=== PATIENT | male | born 1955 | race Caucasian/White ===

== ENCOUNTER 2017-01-13 10:45 | Emergency (ER) | payer OTHER ==
[~2017-01-13] VITALS: Wt 78.0 kg
[~2017-01-13 10:45] MED LIST: LEVO88TA36 PO; OMEP20CA16 PO
[2017-01-13] MEDS ORDERED: ALPR0.25 PO (12:26)
[2017-01-13] MEDS ORDERED: PRED20TA PO (12:26)
[2017-01-13] MEDS ORDERED: DIPHENHYDRAMINE 50 MG INJ IM ONE (12:30)
[2017-01-13] MEDS ORDERED: DEXAMETHASONE 10 MG/ML 1 ML INJ IM ONE (12:30)
[2017-01-13 12:33] VITALS: TEMP 98.3
[2017-01-13] MEDS ORDERED: AMO500 PO (12:35)
--- NOTE | 2017-01-13 19:12 | ERD ---
ER Documentation Chief Complaint Date/Time DATE: 01/13/17 TIME: 19:06 Chief Complaint BILATERAL EAR PAIN HPI 61-year-old male with past medical history of thyroid cancer, GERD, and high cholesterol presenting with complaints of bilateral tinnitus ongoing intermittently for the past 2 weeks. The patient states his symptoms were intermittent at first but are now constant. The patient has had no dizziness, chest pain, shortness of breath, ear discharge, ear pain, or other symptoms. The patient presents having one episode of similar symptoms in the past. There are no other symptoms to report at this time. ROS All systems reviewed and are negative except as per history of present illness. Medications Home Meds Active Scripts Amoxicillin* (Amoxicillin*) 500 Mg Cap, 500 MG PO BID for 10 Days, #20 CAP Prov:SARAH BEGUM PA-C 01/13/17 Alprazolam* (Xanax*) 0.25 Mg Tablet, 0.25 MG PO Q8H Y for ANXIETY, #10 TAB Prov:SARAH BEGUM PA-C 01/13/17 Prednisone* (Prednisone*) 20 Mg Tab, 40 MG PO DAILY for 5 Days, #10 TAB Prov:SARAH BEGUM PA-C 01/13/17 Reported Medications Levothyroxine Sodium (Levothroid) 88 Mcg Tablet, 88 MCG PO DAILY 06/27/13 Omeprazole* (Omeprazole*) 20 Mg Capsule.dr, 20 MG PO DAILY 06/27/13 Allergies Allergies: Coded Allergies: Tetanus Vaccines and Toxoid (Verified Allergy, Unknown, 01/13/17) PMhx/Soc Medical and Surgical Hx: pt denies Surgical Hx History of Surgery: No Anesthesia Reaction: No Hx Neurological Disorder: No Hx Respiratory Disorders: No Hx Cardiac Disorders: No Hx Psychiatric Problems: No Hx Miscellaneous Medical Probl: Yes (sinus infection) Hx Alcohol Use: No Hx Substance Use: No Hx Tobacco Use: No Smoking Status: Never smoker FmHx Noncontributory for chief complaint Physical Exam Vitals Vital Signs Date Time Temp Pulse Resp B/P Pulse Ox O2 Delivery O2 Flow Rate FiO2 01/13/17 12:33 98.3 01/13/17 10:55 98.0 68 18 136/77 98 Physical Exam INITIAL VITAL SIGNS: Reviewed by me. GENERAL: Alert and interactive. No acute distress. HEAD: Head is normocephalic and atraumatic. EYES: EOMI. No scleral icterus. No conjunctival injection. ENT: There is mild erythema to the right tympanic membrane but no bulging. There is no mastoid tenderness to palpation. NECK: Supple. Full range of motion. RESPIRATORY: Normal respiratory effort. Clear breath sounds bilaterally. No wheezing, rales, or rhonchi. CV: Regular rate and rhythm. Normal S1 S2. No S3 or S4. No murmurs. ABDOMEN: Soft, non-distended, non-tender. No guarding. No rebound. No masses. EXTREMITIES: No deformity. SKIN: Warm and dry. NEUROLOGIC: Alert and oriented x 4. Speech is normal. Moves all extremities equally. No motor or sensory deficits noted. Negative Romberg sign. Cranial nerves are intact. Results 24 hrs Current Medications Medications (Trade) Dose Ordered Sig/Ramon Route PRN Reason Start Time Stop Time Status Last Admin Dose Admin Diphenhydramine HCl (Benadryl) 25 mg ONCE ONCE IM 01/13/17 12:30 01/13/17 12:31 DC 01/13/17 12:19 Dexamethasone (Decadron) 10 mg ONCE ONCE IM 01/13/17 12:30 01/13/17 12:31 DC 01/13/17 12:19 Procedures/MDM 61-year-old male presents secondary to complaints of bilateral tinnitus. On physical examination the patient's vitals are within normal limits. Neurological exam is negative. I treated the patient in the department with IM Decadron and IM Benadryl and he was feeling improved on reevaluation. I have low suspicion for CVA, TIA, vertigo, drug-induced tinnitus, or other emergent conditions. The patient will be given prescriptions for amoxicillin, prednisone , and Xanax. The patient is stable for outpatient management. The patient agrees with the diagnosis and discharge plan. The patient was advised to return to the department immediately with any new or worsening symptoms. The patient demonstrates understanding of this information. All questions and concerns were addressed and the patient was hemodynamically stable prior to discharge. Departure Diagnosis: Primary Impression: Tinnitus Condition: Fair Patient Instructions: Tinnitus (Ringing in the Ears) Referrals: COMMUNITY CLINICS YOU HAVE RECEIVED A MEDICAL SCREENING EXAM AND THE RESULTS INDICATE THAT YOU DO NOT HAVE A CONDITION THAT REQUIRES URGENT TREATMENT IN THE EMERGENCY DEPARTMENT. FURTHER EVALUATION AND TREATMENT OF YOUR CONDITION CAN WAIT UNTIL YOU ARE SEEN IN YOUR DOCTORS OFFICE WITHIN THE NEXT 1-2 DAYS. IT IS YOUR RESPONSIBILITY TO MAKE AN APPOINTMENT FOR FOLOW-UP CARE. IF YOU HAVE A PRIMARY DOCTOR --you should call your primary doctor and schedule an appointment IF YOU DO NOT HAVE A PRIMARY DOCTOR YOU CAN CALL OUR PHYSICIAN REFERRAL HOTLINE AT IF YOU CAN NOT AFFORD TO SEE A PHYSICIAN YOU CAN CHOSE FROM THE FOLLOWING [facility] [address] [facility] [address] [facility] [address] [facility] [address] [facility] [address] [facility] [address] [facility] [address] [facility] [address] Additional Instructions: Follow-up with your primary care physician within 1 week. Return to the emergency department immediately should you have any new or worsening symptoms, uncontrolled fevers, or other unexplained symptoms. Take all medications as directed. SARAH BEGMU PA-C Jan 13, 2017 19:12
== END 2017-01-13 12:34 | disposition home or self-care (01) ==
LOC: FTE 10:45
DX: H93.13 Tinnitus, bilateral (principal); Z85.850 Personal history of malignant neoplasm of thyroid
CPT/HCPCS: 96372; J1100; J1200; Z7502

== ENCOUNTER 2017-07-31 01:56 | Emergency (ER) | payer OTHER ==
[~2017-07-31] VITALS: Ht 172.7 cm; Wt 70.5 kg
[~2017-07-31 01:56] MED LIST changes: +ALPR0.25 PO; +AMO500 PO; +PRED20TA PO
[2017-07-31 02:00] VITALS: Ht 172.7 cm; Wt 70.5 kg
--- NOTE | 2017-07-31 03:34 | ERD ---
ER Documentation Chief Complaint Date/Time DATE: 07/31/17 TIME: 03:34 Chief Complaint cough, nasal congestion, insomnia HPI 51-year-old male presents to emergency department for complaints of cough, runny nose, nasal congestion started 2 weeks ago. Patient has been having dry cough, does not cough up any phlegm or blood. Patient does not have any shortness of breath or wheezing. Patient cannot sleep at night because he is very congested in his nose. He has been taking Flonase stop with some of the symptoms with mild relief. Patient denies any chest pain or palpitations. Patient denies any dizziness. ROS All systems reviewed and are negative except as per history of present illness. Medications Home Meds Active Scripts Amoxicillin* (Amoxicillin*) 500 Mg Cap, 500 MG PO BID for 10 Days, #20 CAP Prov:SARAH BEGUM PA-C 01/13/17 Alprazolam* (Xanax*) 0.25 Mg Tablet, 0.25 MG PO Q8H Y for ANXIETY, #10 TAB Prov:SARAH BEGUM PA-C 01/13/17 Prednisone* (Prednisone*) 20 Mg Tab, 40 MG PO DAILY for 5 Days, #10 TAB Prov:SARAH BEGUM PA-C 01/13/17 Reported Medications Levothyroxine Sodium (Levothroid) 88 Mcg Tablet, 88 MCG PO DAILY 06/27/13 Omeprazole* (Omeprazole*) 20 Mg Capsule.dr, 20 MG PO DAILY 06/27/13 Allergies Allergies: Coded Allergies: Tetanus Vaccines and Toxoid (Verified Allergy, Unknown, 07/31/17) PMhx/Soc History of Surgery: No Anesthesia Reaction: No Hx Neurological Disorder: No Hx Respiratory Disorders: No Hx Cardiac Disorders: No Hx Psychiatric Problems: Yes (psych) Hx Miscellaneous Medical Probl: Yes (sinus infection) Hx Alcohol Use: No Hx Substance Use: No Hx Tobacco Use: No FmHx Family History: No coronary disease, No diabetes, No other Physical Exam Vitals Vital Signs Date Time Temp Pulse Resp B/P Pulse Ox O2 Delivery O2 Flow Rate FiO2 07/31/17 02:00 97.6 60 20 164/85 98 Physical Exam GENERAL: The patient is well developed and appropriate for usual state of health, in no apparent distress. CHEST: Clear to auscultation bilaterally. There are no rales, wheezes or rhonchi. HEART: Regular rate and rhythm. No murmurs, clicks, rubs or gallops. No S3 or S4. ABDOMEN: Soft, nontender and nondistended. Good bowel sounds. No rebound or guarding. No gross peritonitis. No gross organomegaly or masses. No Tidwell sign or McBurney point tenderness. BACK: No midline or flank tenderness. EXTREMITIES: Equal pulses bilaterally. There is no peripheral clubbing, cyanosis or edema. No focal swelling or erythema. Full range of motion. Grossly neurovascularly intact. NEURO: Alert and oriented. Cranial nerves 2-12 intact. Motor strength in all 4 extremities with 5/5 strength. Sensation grossly intact. Normal speech and gait. SKIN: There is no apparent rash or petechia. The skin is warm and dry. HEMATOLOGIC AND LYMPHATIC: There is no evidence of excessive bruising or lymphedema. No gross cervical, axillary, or inguinal lymphadenopathy. Results 24 hrs PROCEDURE: Chest. CLINICAL INDICATION: Cough. TECHNIQUE: Single frontal view of the chest was obtained. COMPARISON: 06/27/2013. FINDINGS: The cardiac silhouette is within normal limits. The aortic arch is unremarkable. There is no focal consolidation, vascular congestion or pleural effusion. There is no pneumothorax. IMPRESSION: No evidence for active cardiopulmonary disease. .Ashwin Ayala MD, MD Date Time Electronically viewed and signed by .Ashwin Ayala MD, MD on 07/31/2017 03:34 .T/ CC: PERRY LOPEZ [employer] Procedures/MDM Medical Decision Making: Patient symptoms are most likely consistent with acute bronchitis, which possibly atypical infection There is low suspicion for Pneumonia at this time since patients lungs sounds are clear, patient O2 saturation is normal and patient doesnt show any respiratory distress. Patients chest xray doesnt show infiltrates or any other cardiopulmonary emergencies at this time. There is low suspicion for other cardiopulmonary emergencies at this time such as CHF, Pulmonary Embolism, Pneumothorax, Aortic Aneurysm or any other cardiopulmonary emergencies at this time. There is low suspicion for sepsis. Patient appears well and is hemodynamically stable. Fever is controlled with medicines. Disposition: Home. Condition: Stable Prescriptions: Albuterol, Zyrtec, azithromycin, Guaifenasin DM Instructions: Patient is advised to take medications as prescribed. Patient is advised to rest. Patient advised to increase fluid intake, do humidifier at home and if possible, do salt water gargles. Patient is advised that if symptoms are worse, shortness of breath, uncontrolled fever, stridor, vomiting, worst signs and symptoms to return to emergency department immediately. Otherwise, patient is advised to follow up with primary doctor in 5-7 days. Departure Diagnosis: Primary Impression: Acute bronchitis Bronchitis organism: unspecified organism Qualified Code: J20.9 - Acute bronchitis, unspecified organism Condition: Stable Patient Instructions: Bronchitis, Antiobiotic Treatment (Adult) Additional Instructions: Patient is advised to take medications as prescribed. Patient is advised to rest. Patient advised to increase fluid intake, do humidifier at home and if possible, do salt water gargles. Patient is advised that if symptoms are worse, shortness of breath, uncontrolled fever, stridor, vomiting, worst signs and symptoms to return to emergency department immediately. Otherwise, patient is advised to follow up with primary doctor in 5-7 days. PERRY LOPEZ NP Jul 31, 2017 03:34
[2017-07-31] MEDS ORDERED: CETI10CA PO (04:00)
[2017-07-31] MEDS ORDERED: AZIT250T94 PO (04:00)
[2017-07-31] MEDS ORDERED: GUAI120S26 PO (04:00)
[2017-07-31] MEDS ORDERED: ALBU8.5H3 INH (04:00)
[2017-07-31 04:26] VITALS: BP 142/78; PULSE 72; RESP 20; TEMP 98.3
== END 2017-07-31 04:28 | disposition home or self-care (01) ==
LOC: FTE 01:56
DX: J20.9 Acute bronchitis, unspecified (principal)
CPT/HCPCS: 71010; Z7502